=== PATIENT | male | born 1975 | race Caucasian/White ===

== ENCOUNTER 2023-08-25 13:59 | Emergency (ER) | payer BC ==
[2023-08-25 14:08] VITALS: BP 144/86; PULSE 102; RESP 18; TEMP 98.8; BMI 31.5
[2023-08-25] MEDS ORDERED: KETOROLAC TROMETHAMINE 30 MG/1 ML VIAL ONE (14:53)
[2023-08-25] MEDS: SODIUM CHLORIDE 0.9% 500 ML INFUS.BAG IV ONE (15:13)
[2023-08-25] MEDS: KETOROLAC TROMETHAMINE 30 MG/1 ML VIAL IVPUSH ONE (15:14)
[2023-08-25 15:46] LABS: BASO % 0.4 % (0-2.0); EOS % 1.1 % (0-4.5); HEMATOCRIT 41.4 % (35.4-49); HEMOGLOBIN 14.4 GM/dL (11.7-16.9); LYMPH % 15.3 % (8-40); MCH 34.2 pg (25.7-33.7); MCHC 34.9 g/dl (32.0-35.9); MEAN CELL VOLUME 98.2 fl (80-96); MEAN PLT VOLUME 7.1 fl (7.5-11.1); MONO % 11.2 % (3.8-10.2); PLATELET COUNT 255 10^3/uL (134-434); RBC 4.21 M/mm3 (4.00-5.60); RDW 12.8 % (11.9-15.9); WHITE BLOOD COUNT 4.5 K/mm3 (4.0-10.0)
[2023-08-25 16:03] LABS: POTASSIUM 3.6 mmol/L (3.5-5.1)
[2023-08-25 16:05] LABS: ALBUMIN 4.2 g/dl (3.4-5.0); BLOOD UREA NITROGEN 12.8 mg/dL (7-18)
[2023-08-25 16:10] LABS: BILIRUBIN,TOTAL 0.6 mg/dL (0.2-1); TOT PROT 8.4 g/dl (6.4-8.2)
[2023-08-25] MEDS: CEFAZOLIN 1 GM in DEXTROSE 5%-WATER - 50 ML IVPB SCH (17:59)
== END 2023-08-25 18:11 | disposition home or self-care (01) ==
LOC: JERFT 13:59
PROC: 3E033GC Introduction of Other Therapeutic Substance into Peripheral Vein, Percutaneous Approach (ICD-10-PCS; principal; 2023-08-25)
PROC: 3E033GC Introduction of Other Therapeutic Substance into Peripheral Vein, Percutaneous Approach (ICD-10-PCS; 2023-08-25)
DX: L03.211 Cellulitis of face (principal)
CPT/HCPCS: 36415; 70491-TC; 80053; 85025; 87651; 99285-25; Q9967